=== PATIENT | male | born 1965 | race Caucasian/White ===

== ENCOUNTER 2025-07-03 23:30 | Emergency (ER) | payer SELFPAY ==
[~2025-07-03] VITALS: Ht 172.7 cm; Wt 90.3 kg
[2025-07-03 23:54] VITALS: O2SAT 98
[2025-07-04 01:59] VITALS: BP 150/83; PULSE 55; RESP 16; TEMP 36.7; O2SAT 97
== END 2025-07-04 02:03 | disposition home or self-care (01) ==
LOC: ER 23:30
DX: S09.8XXA Other specified injuries of head, initial encounter (principal); G44.309 Post-traumatic headache, unspecified, not intractable; I10 Essential (primary) hypertension; X58.XXXA Exposure to other specified factors, initial encounter; Y93.89 Activity, other specified; Y92.89 Other specified places as the place of occurrence of the external cause; Y99.8 Other external cause status
CPT/HCPCS: 99284